=== PATIENT | female | born 1975 | race Caucasian/White ===

== ENCOUNTER 2020-01-06 13:32 | Outpatient (CLI) | payer OTHER, SELFPAY ==
--- NOTE | ~2020-01-06 | MR_ITS ---
EXAMINATION: MR foot LT wo/w con DATE: 01/06/2020 15:37 INDICATION: Left toe infection was suspected osteomyelitis. TECHNIQUE: Magnetic resonance imaging (MRI) of the left fore/mid foot was performed without and with 18 mL Multihance intravenous contrast. Sequences included axial, sagittal and coronal T1-weighted FSE , sagittal fluid sensitive FSE STIR, axial and coronal T2-weighted FS FSE, axial T1-weighted FS FSE a nd postcontrast axial, sagittal and coronal T1-weighted FS FSE. COMPARISON: None FINDINGS: There is loss of normal T1 marrow fat signal throughout the majority of the left first proximal and d istal phalanges consistent with osteomyelitis. There is peripheral enhancement surrounding a large no nenhancing region with a few foci of absent signal likely representing gas which together occupies th e majority of the proximal phalanx consistent with osteonecrosis. There is destruction of portions of the medial cortex with a large sinus tract extending from the central the bone to a deep ulceration at the medial side of the proximal phalanx. There is normal marrow signal throughout the remaining vi sualized bones of the forefoot. Mild osteoarthritis at the first metatarsophalangeal joint without as sociated diffusion to suggest septic arthritis. Additional mild osteoarthritis at a few of the visual ized tarsal metatarsal and interphalangeal joints. There is diffuse reactive edema and enhancement th roughout the intrinsic musculature of the forefoot. IMPRESSION: 1. Advanced osteomyelitis involving the entire left first proximal and distal phalanges the former wh ich is largely necrotic and avascular. Reviewed, dictated and finalized at location A. IMPRESSION: 1. Advanced osteomyelitis involving the entire left first proximal and distal p halanges the former which is largely necrotic and avascular.
[2020-01-06 14:31] LABS: Estimated Glomerular Filt Rate > 60
== END 2020-01-06 13:33 ==
PROVIDERS: PCP Nurse Practitioner Family
DX: M86.172 Other acute osteomyelitis, left ankle and foot (principal)
CPT/HCPCS: 73720; A9577